=== PATIENT | male | born 1970 | race Caucasian/White ===

== ENCOUNTER 2021-07-31 12:07 | Emergency (ER) | payer OTHER ==
[2021-07-31 12:31] LABS: Absolute Lymphocytes (CBC) 1.8 K/uL (0.7-4.9); Basophils % 0.8 % (0-1.3); Hematocrit 44.5 % (39.6-49.0); Lymphocytes % 35.6 % (15.3-44.8); MPV 7.6 fL (7.6-11.3); RBC Red Blood Cell Count 5.24 M/uL (4.33-5.43)
[2021-07-31 12:36] LABS: Protime INR 1.04
[2021-07-31] MEDS ORDERED: ASPIRIN 81 MG CHEWABLE TABLET ONE (12:44)
[2021-07-31] MEDS ORDERED: NA CHLORIDE 0.9% 1,000 ML ONE (12:44)
[2021-07-31 12:55] LABS: ALT/SGPT 49 U/L (12-78); AST/SGOT 17 U/L (15-37); Albumin 4.2 g/dL (3.4-5.0); Alkaline Phosphatase 60 U/L (45-117); BUN Blood Urea Nitrogen 20 mg/dL (7-18); Bicarbonate 30 mmol/L (21-32); Bilirubin Direct < 0.1 mg/dL (0-0.2); Bilirubin Total 0.3 mg/dL (0.2-1.0); Glucose Level 126 mg/dL (74-106); Lipase 143 U/L (73-393); Magnesium 2.3 mg/dL (1.8-2.4); NT PRO-BNP 11 pg/mL (<125); Potassium 4.1 mmol/L (3.5-5.1); Protein, Total 7.6 g/dL (6.4-8.2); Sodium Level 139 mmol/L (136-145); Troponin (Emerg Dept Use Only) < 0.02 ng/mL (0.0-0.045)
--- NOTE | 2021-07-31 13:09 | ER ---
Nurse's Notes [facility] Name: Elijah Olivo Age: 51 yrs Sex: Male : 1970 Arrival Date: 07/31/2021 Time: 12:09 Bed 26 Private MD: Diagnosis: Chest pain, unspecified;Essential (primary) hypertension Presentation: 07/31 12:32 Chief complaint: Patient states: "I was at work this morning when I began to feel a ld1 dull pain in the top left of my chest. It progressed to both of my arms feeling ice cold." Patient reports chest pains throughout the past week. Coronavirus screen: At this time, the client does not indicate any symptoms associated with coronavirus-19. Ebola Screen: No symptoms or risks identified at this time. Initial Sepsis Screen: Does the patient meet any 2 criteria? No. Patient's initial sepsis screen is negative. Does the patient have a suspected source of infection? No. Patient's initial sepsis screen is negative. Risk Assessment: Do you want to hurt yourself or someone else? Patient reports no desire to harm self or others. Onset of symptoms was July 31, 2021. 12:32 Method Of Arrival: EMS: BASF ld1 12:32 Acuity: JOEL 3 ld1 Triage Assessment: 12:35 General: Appears in no apparent distress. comfortable, Behavior is calm, cooperative, ld1 appropriate for age. Pain: Denies pain. EENT: No signs and/or symptoms were reported regarding the EENT system. Neuro: Level of Consciousness is awake, alert, obeys commands, Oriented to person, place, time, situation. Cardiovascular: Capillary refill < 3 seconds Patient's skin is warm and dry. Rhythm is regular. Respiratory: Airway is patent Respiratory effort is even, unlabored, Respiratory pattern is regular, symmetrical. GI: Abdomen is flat, non-distended. : No signs and/or symptoms were reported regarding the genitourinary system. Derm: No signs and/or symptoms reported regarding the dermatologic system. Musculoskeletal: Reports pain in anterior aspect of left upper chest Pt denies pain at this time. States he has been having chest pain throughout the past week and this morning, but not at this current moment. Historical: - Allergies: 12:35 No Known Allergies; ld1 - Home Meds: 12:35 None [Active]; ld1 - PMHx: 12:35 None; ld1 - PSHx: 12:35 None; ld1 - Immunization history:: Adult Immunizations up to date, Client reports receiving the 2nd dose of the Covid vaccine. - Social history:: Smoking status: Patient denies any tobacco usage or history of. - Family history:: not pertinent. Screenin:37 Abuse screen: Denies threats or abuse. Denies injuries from another. Nutritional ld1 screening: No deficits noted. Tuberculosis screening: No symptoms or risk factors identified. Fall Risk None identified. Assessment: 12:37 Reassessment: See triage assessment. ld1 13:30 Reassessment: Patient appears in no apparent distress at this time. No changes from ld1 previously documented assessment. Patient and/or family updated on plan of care and expected duration. Pain level reassessed. Patient is alert, oriented x 3, equal unlabored respirations, skin warm/dry/pink. 14:40 Reassessment: Patient appears in no apparent distress at this time. Patient is alert, ld1 oriented x 3, equal unlabored respirations, skin warm/dry/pink. 14:40 Reassessment: Patient appears in no apparent distress at this time. Patient and/or ld1 family updated on plan of care and expected duration. Pain level reassessed. Patient is alert, oriented x 3, equal unlabored respirations, skin warm/dry/pink. Pt requesting further testing. Notified ERP. See orders. Vital Signs: 12:32 BP 152 / 93; Pulse 68; Resp 18; Temp 98.7(O); Pulse Ox 100% on R/A; Weight 86.18 kg; ld1 Height 5 ft. 9 in. (175.26 cm); Pain 0/10; 12:50 BP 146 / 85; Pulse 72; Resp 18; Pulse Ox 100% on R/A; ld1 14:40 BP 141 / 95; Pulse 67; Resp 18; Pulse Ox 99% ; ld1 12:32 Body Mass Index 28.06 (86.18 kg, 175.26 cm) ld1 ED Course: 12:09 Patient arrived in ED. segun 12:11 Asher Pierce MD is Attending Physician. [facility] 12:32 Simi Lima RN is Primary Nurse. ld1 12:35 Triage completed. ld1 12:35 Arm band placed on right wrist. ld1 12:37 Patient has correct armband on for positive identification. Placed in gown. Bed in low ld1 position. Call light in reach. Side rails up X2. laboratory monitor on. Pulse ox on. NIBP on. Door closed. Noise minimized. Warm blanket given. 12:37 No provider procedures requiring assistance completed. Maintain EMS IV. Dressing ld1 intact. Good blood return noted. Site clean \\T\\ dry. Gauge \\T\\ site: 20 G LAC. Patient maintains SpO2 saturation greater than 95% on room air. 13:08 Garrett Michele MD is Referral Physician. [facility] 13:13 Garrett Michele MD is Referral Physician. [facility] 13:15 XRAY Chest (1 view) In Process Unspecified. EDMS 14:36 Troponin (Emerg Dept Use Only) Sent. ld1 15:28 Michael Gamino MD is Referral Physician. [facility] 16:02 CT Aorta for Dissection In Process Unspecified. EDMS 16:54 IV discontinued, intact, bleeding controlled, No redness/swelling at site. ld1 Administered Medications: 12:27 Drug: NS 0.9% 1000 ml Route: IV; Rate: 1 bolus; Site: left antecubital; ld1 12:27 Drug: Aspirin Chewable Tablet 324 mg Route: PO; ld1 15:34 Follow up: Response: No adverse reaction ld1 13:38 Drug: ToPROL XL (metoprolol SUCCINATE) 25 mg Route: PO; ld1 14:36 Follow up: Response: No adverse reaction ld1 15:34 Drug: Pepcid (famotidine) 20 mg Route: IVP; Site: left antecubital; ld1 15:34 Drug: GI Cocktail without - (Maalox Suspension 30 ml, Lidocaine Liquid 2 % 15 ld1 ml) Route: PO; Outcome: 13:08 Discharge ordered by . segun 13:13 Discharge ordered by . [facility] 16:53 Discharged to home ambulatory. ld1 16:53 Condition: stable 16:53 Discharge instructions given to patient, Instructed on discharge instructions, follow up and referral plans. medication usage, Demonstrated understanding of instructions, follow-up care, medications, Prescriptions given X 2. 16:54 Patient left the ED. ld1 Signatures: Dispatcher [employer] EDAsher Desir MD MD cha Dibbern, Simi, RN RN ld1 Corrections: (The following items were deleted from the chart) 12:36 12:35 Home Meds: Unable to obtain; ld1 ld1
--- NOTE | 2021-07-31 13:09 | EDPHYS ---
Physician Documentation [facility] Name: Elijah Olivo Age: 51 yrs Sex: Male : 1970 Arrival Date: 07/31/2021 Time: 12:09 Bed 26 Private MD: Asher Subramanian HPI: 07/31 12:12 This 51 yrs old Male presents to ER via Unassigned with complaints of CHEST segun PAIN, PALPITATIONS. 12:12 The patient or guardian reports chest pain that is located primarily in the substernal segun area. Onset: 1 week(s) ago. The patient presents with a history of irregular heart beat, heart skipping beats. Context: The symptoms occur with light activity. Onset: The symptoms/episode began/occurred 1 week(s) ago. Duration: The patient or guardian reports multiple episodes, with no pattern. Modifying factors: The symptoms are aggravated by nothing. The symptoms are alleviated by nothing. The pain does not radiate. Associated signs and symptoms: Pertinent positives: chest pain, lightheadedness. The chest pain is described as sharp. Historical: - Allergies: 12:35 No Known Allergies; ld1 - Home Meds: 12:35 None [Active]; ld1 - PMHx: 12:35 None; ld1 - PSHx: 12:35 None; ld1 - Immunization history:: Adult Immunizations up to date, Client reports receiving the 2nd dose of the Covid vaccine. - Social history:: Smoking status: Patient denies any tobacco usage or history of. - Family history:: not pertinent. ROS: 12:12 Constitutional: Negative for fever, chills, and weight loss, Eyes: Negative for injury, segun pain, redness, and discharge, ENT: Negative for injury, pain, and discharge, Neck: Negative for injury, pain, and swelling, Respiratory: Negative for shortness of breath, cough, wheezing, and pleuritic chest pain, Abdomen/GI: Negative for abdominal pain, nausea, vomiting, diarrhea, and constipation, Back: Negative for injury and pain, : Negative for injury, bleeding, discharge, and swelling, MS/Extremity: Negative for injury and deformity, Skin: Negative for injury, rash, and discoloration, Neuro: Negative for headache, weakness, numbness, tingling, and seizure, Psych: Negative for depression, anxiety, suicide ideation, homicidal ideation, and hallucinations, Allergy/Immunology: Negative for hives, rash, and allergies, Endocrine: Negative for neck swelling, polydipsia, polyuria, polyphagia, and marked weight changes, Hematologic/Lymphatic: Negative for swollen nodes, abnormal bleeding, and unusual bruising. 12:12 Cardiovascular: Positive for chest pain, with cough. Exam: 12:12 Constitutional: This is a well developed, well nourished patient who is awake, alert, segun and in no acute distress. Head/Face: Normocephalic, atraumatic. Eyes: Pupils equal round and reactive to light, extra-ocular motions intact. Lids and lashes normal. Conjunctiva and sclera are non-icteric and not injected. Cornea within normal limits. Periorbital areas with no swelling, redness, or edema. ENT: Nares patent. No nasal discharge, no septal abnormalities noted. Tympanic membranes are normal and external auditory canals are clear. Oropharynx with no redness, swelling, or masses, exudates, or evidence of obstruction, uvula midline. Mucous membranes moist. Neck: Trachea midline, no thyromegaly or masses palpated, and no cervical lymphadenopathy. Supple, full range of motion without nuchal rigidity, or vertebral point tenderness. No Meningismus. Chest/axilla: Normal chest wall appearance and motion. Nontender with no deformity. No lesions are appreciated. Cardiovascular: Regular rate and rhythm with a normal S1 and S2. No gallops, murmurs, or rubs. Normal PMI, no JVD. No pulse deficits. Respiratory: Lungs have equal breath sounds bilaterally, clear to auscultation and percussion. No rales, rhonchi or wheezes noted. No increased work of breathing, no retractions or nasal flaring. Abdomen/GI: Soft, non-tender, with normal bowel sounds. No distension or tympany. No guarding or rebound. No evidence of tenderness throughout. Back: No spinal tenderness. No costovertebral tenderness. Full range of motion. Male : Normal genitalia with no discharge or lesions. Skin: Warm, dry with normal turgor. Normal color with no rashes, no lesions, and no evidence of cellulitis. MS/ Extremity: Pulses equal, no cyanosis. Neurovascular intact. Full, normal range of motion. Neuro: Awake and alert, GCS 15, oriented to person, place, time, and situation. Cranial nerves II-XII grossly intact. Motor strength 5/5 in all extremities. Sensory grossly intact. Cerebellar exam normal. Normal gait. Psych: Awake, alert, with orientation to person, place and time. Behavior, mood, and affect are within normal limits. 12:12 Musculoskeletal/extremity: Circulation is intact in all extremities. Sensation intact. Compartment Syndrome exam of affected extremity: is normal. Joints: All joints appear normal with full range of motion. DVT Exam: No signs of deep vein thrombosis. no pain, no swelling, no tenderness, negative Homans' sign noted on exam, no appreciated bluish discoloration, no erythema, no increased warmth. 12:38 ECG was reviewed by the Attending Physician. [facility] 16:25 ECG was reviewed by the Attending Physician. [facility] Vital Signs: 12:32 BP 152 / 93; Pulse 68; Resp 18; Temp 98.7(O); Pulse Ox 100% on R/A; Weight 86.18 kg; ld1 Height 5 ft. 9 in. (175.26 cm); Pain 0/10; 12:50 BP 146 / 85; Pulse 72; Resp 18; Pulse Ox 100% on R/A; ld1 14:40 BP 141 / 95; Pulse 67; Resp 18; Pulse Ox 99% ; ld1 12:32 Body Mass Index 28.06 (86.18 kg, 175.26 cm) ld1 MDM: 12:11 Patient medically screened. segun 12:14 Differential diagnosis: abnormal EKG, coronary artery disease chest wall pain, segun congestive heart failure costochondritis, arrythmia, hiatal hernia, pancreatitis, pulmonary embolus, stable angina, unstable angina. HEART Score: History: Slightly Suspicious (0), ECG: Normal (0), Age: > 45 and < 65 years (1), Risk Factors: No Risk Factors Known (0), Troponin: < or = 1 x Normal Limit (0). The patient was given aspirin in the Emergency Department. The patient's deep vein thrombosis risk score was calculated as follows: Total Score: 0. This patient was found to be at low risk for a deep vein thrombosis by using the Well's assessment criteria. The patient's pulmonary embolism risk score was calculated as follows: Total Score: 0-2 points. This patient was found to be at low risk for a pulmonary embolism by using the Well's assessment criteria. FLOYD Risk Score: TOTAL SCORE = 0. Data reviewed: vital signs, nurses notes, lab test result(s), EKG, radiologic studies, plain films. Data interpreted: monitoring engineer: rate is 65 beats/min, rhythm is regular, Pulse oximetry: on room air is 96 %. 07/31 12:12 Order name: Basic Metabolic Panel; Complete Time: 13:06 [facility] 07/31 12:12 Order name: CBC with Diff; Complete Time: 13:06 segun 07/31 12:12 Order name: LFT's; Complete Time: 13:06 [facility] 07/31 12:12 Order name: Magnesium; Complete Time: 13:06 [facility] 07/31 12:12 Order name: NT PRO-BNP; Complete Time: 13:06 segun 07/31 12:12 Order name: PT-INR; Complete Time: 13:06 segun 07/31 12:12 Order name: Troponin (emerg Dept Use Only); Complete Time: 13:06 [facility] 07/31 12:12 Order name: XRAY Chest (1 view); Complete Time: 15:14 [facility] 07/31 12:12 Order name: Lipase; Complete Time: 13:06 [facility] 07/31 13:13 Order name: Troponin (Emerg Dept Use Only); Complete Time: 15:14 EDMS 07/31 13:49 Order name: Echo w/ Doppler 07/31 15:24 Order name: CT Aorta for Dissection [facility] 07/31 15:24 Order name: Troponin (emerg Dept Use Only): 400PM [facility] 07/31 12:12 Order name: EKG; Complete Time: 12:12 [facility] 07/31 12:12 Order name: Cardiac monitoring; Complete Time: 12:16 [facility] 07/31 12:12 Order name: EKG - Nurse/Tech; Complete Time: 12:16 [facility] 07/31 12:12 Order name: IV Saline Lock; Complete Time: 12:16 [facility] 07/31 12:12 Order name: Labs collected and sent; Complete Time: 12:16 segun 07/31 12:12 Order name: O2 Per Protocol; Complete Time: 12:16 segun 07/31 12:12 Order name: O2 Sat Monitoring; Complete Time: 12:16 [facility] EC:38 Rate is 63 beats/min. Rhythm is regular. QRS [place] is Normal. NC interval is normal. QRS segun interval is normal. QT interval is normal. No Q waves. T waves are Normal. No ST changes noted. Clinical impression: Normal ECG and No evidence of ischemia. Interpreted by me. Reviewed by me. 16:25 Rate is 61 beats/min. Rhythm is regular. QRS [place] is Normal. NC interval is normal. QRS segun interval is normal. QT interval is normal. No Q waves. T waves are Normal. No ST changes noted. Clinical impression: Normal ECG and No evidence of ischemia. Interpreted by me. Reviewed by me. Administered Medications: 12:27 Drug: NS 0.9% 1000 ml Route: IV; Rate: 1 bolus; Site: left antecubital; ld1 12:27 Drug: Aspirin Chewable Tablet 324 mg Route: PO; ld1 15:34 Follow up: Response: No adverse reaction ld1 13:38 Drug: ToPROL XL (metoprolol SUCCINATE) 25 mg Route: PO; ld1 14:36 Follow up: Response: No adverse reaction ld1 15:34 Drug: Pepcid (famotidine) 20 mg Route: IVP; Site: left antecubital; ld1 15:34 Drug: GI Cocktail without - (Maalox Suspension 30 ml, Lidocaine Liquid 2 % 15 ld1 ml) Route: PO; Disposition Summary: 07/31/21 13:13 Discharge Ordered Location: Home(07/31/21 13:13) segun Problem: new(07/31/21 13:13) segun Symptoms: have improved(07/31/21 13:13) segun Condition: Stable(07/31/21 13:13) segun Diagnosis - Chest pain, unspecified(07/31/21 13:13) segun - Essential (primary) hypertension segun Followup: segun - With: Private Physician - When: 2 - 3 days - Reason: Recheck today's complaints, Continuance of care, Re-evaluation by your physician Followup: segun - With: Garrett Michele MD - When: 2 - 3 days - Reason: Recheck today's complaints, Re-evaluation by your physician Followup: segun - With: Mihcael Gamino MD - When: 2 - 3 days - Reason: Recheck today's complaints, Re-evaluation by your physician Discharge Instructions: - Discharge Summary Sheet segun - Nonspecific Chest Pain, Adult segun - Hypertension, Adult segun - Nonspecific Chest Pain, Adult, [id number] segun - Hypertension, Adult, [id number] segun - Aspirin and Your Heart segun Forms: - Medication Reconciliation Form segun - Thank You Letter segun - Antibiotic Education segun - Prescription Opioid Use [facility] Prescriptions: - Toprol XL 25 mg Oral Tablet - take 1 tablet by ORAL route once daily; 20 tablet; Refills: 0, Product segun Selection Permitted - Pepcid 20 mg Oral Tablet - take 1 tablet by ORAL route every 12 hours for 15 days; 30 tablet; Refills: 0, segun Product Selection Permitted Signatures: Dispatcher [employer] EDMS Asher Pierce MD MD cha Dibbern, Lauren, RN RN ld1 Corrections: (The following items were deleted from the chart) 12:36 12:35 Home Meds: Unable to obtain; ld1 ld1 13:11 13:08 Home [facility] 13:11 13:08 new [facility] 13:11 13:08 have improved [facility] 13:11 13:08 Stable [facility] 13:11 13:08 Chest pain, unspecified [facility] 13:31 13:13 TROPONIN (EMERG DEPT USE ONLY)+[email or web address] ordered. EDMS EDMS
--- NOTE | 2021-07-31 13:49 | RAD REPORT ---
EXAM DESCRIPTION: RAD - Chest Single View - 07/31/2021 1:15 pm CLINICAL HISTORY: CHEST PAIN Chest pain. COMPARISON: No comparisons FINDINGS: Portable technique limits examination quality. The lungs are grossly clear. The heart is normal in size. No displaced fractures. IMPRESSION: No acute intrathoracic process suspected.
[2021-07-31] MEDS ORDERED: METOPROLOL TAR 25 MG TAB ONE (13:58)
[2021-07-31] MEDS ORDERED: MAGNES/ALUMIN/SIMET 30ML UCUP ONE (15:51)
[2021-07-31] MEDS ORDERED: FAMOTIDINE 20 MG/2 ML VIAL IV ONE (15:51)
[2021-07-31] MEDS ORDERED: LIDOCAINE VISCOUS 2% SOLN 15 ML UDC ONE (15:51)
--- NOTE | 2021-07-31 16:59 | RAD REPORT ---
EXAM DESCRIPTION: CT - Angio Aorta For Dissection - 07/31/2021 4:02 pm CLINICAL HISTORY: Chest pain radiating to the back. Dissection;PE COMPARISON: No comparisons TECHNIQUE: CT angiography of the aorta was performed with MIPs. All CT scans are performed using dose optimization technique as appropriate and may include automated exposure control or mA/KV adjustment according to patient size. FINDINGS: A left aortic arch is present with normal branching pattern of the great vessels.No acute aortic finding is seen such as aneurysm, penetrating ulcer or dissection. The celiac axis, SMA, TANMAY and renal arteries are patent. No evidence of pulmonary embolism. The lungs are clear. The liver demonstrates no focal mass or biliary dilatation.Small fat containing umbilical hernia.The spleen, pancreas, adrenal glands and kidneys are within normal limits for arterial phase imaging. No bowel obstruction, free fluid or abscess.Normal appendix.No pathologic enlarged lymphadenopathy id entified. Lower lumbar degenerative changes are present. IMPRESSION: No acute aortic finding is demonstrated.
[2021-07-31 17:14] VITALS: TEMP 98.7
[2021-07-31 17:16] VITALS: BP 141/95; O2SAT 99
--- NOTE | 2021-08-01 07:18 | ECHO ---
HEIGHT: 5 ft 9 in WEIGHT: 190 lb 0 oz DATE OF STUDY: 07/31/[address]: Asher Pierce MD 2-DIMENSIONAL: YES M.MODE: YES DOPPLER: YES COLOR FLOW: YES TDS: NO PORTABLE: NO DEFINITY: NO BUBBLE STUDY: NO DIAGNOSIS: CHEST PAIN CARDIAC HISTORY: CATHERIZATION: NO SURGERY: NO PROSTHETIC VALVE: NO PACEMAKER: NO MEASUREMENTS (cm) DIASTOLIC (NORMALS) SYSTOLIC (NORMALS) IVSd 1.0 (0.6-1.2) LA Diam 1.9 (1.9-4.0) LVEF 60-65% LVIDd 4.2 (3.5-5.7) LVIDs 2.6 (2.0-3.5) %FS 39% LVPWd 1.0 (0.6-1.2) Ao Diam 2.9 (2.0-3.7) 2 DIMENSIONAL ASSESSMENT: RIGHT ATRIUM: NORMAL LEFT ATRIUM: NORMAL RIGHT VENTRICLE: NORMAL LEFT VENTRICLE: NORMAL TRICUSPID VALVE: NORMAL MITRAL VALVE: NORMAL PULMONIC VALVE: NORMAL AORTIC VALVE: NORMAL PERICARDIAL EFFUSION: NONE AORTIC ROOT: NORMAL LEFT VENTRICULAR WALL MOTION: NORMAL DOPPLER/COLOR FLOW: NORMAL COMMENTS: LEFT VENTRICULAR EJECTION FRACTION 60-65%. NORMAL WALL MOTION. NORMAL STUDY. TECHNOLOGIST: Jonathon HERMOSILLO
--- NOTE | 2021-08-02 11:47 | EKG ---
Test Date: 2021-07-31 Test Time: 16:22:24 Grain Cleaner And Transfer Operator: REHANA MEASUREMENT RESULTS: Intervals: Rate: 61 MT: 204 QRSD: 90 QT: 400 QTc: 402 [place]: P: 29 MT: 204 QRS: 49 T: 73 INTERPRETIVE STATEMENTS: Normal sinus rhythm Normal ECG Compared to ECG 07/31/2021 12:15:13 No significant changes Electronically Signed On 08-02-21 11:44:48 CDT by Garrett Michele
--- NOTE | 2021-08-02 11:48 | EKG ---
Test Date: 2021-07-31 Test Time: 12:15:13 Associate Counsel: POLO MEASUREMENT RESULTS: Intervals: Rate: 63 ID: [id number] QRSD: 98 QT: 404 QTc: 413 [place]: P: 43 ID: [id number] QRS: 48 T: 74 INTERPRETIVE STATEMENTS: Normal sinus rhythm Normal ECG No previous ECG available for comparison Electronically Signed On 08-02-21 11:45:08 CDT by Garrett Michele
== END 2021-07-31 16:54 | disposition home or self-care (01) ==
LOC: ER 12:07
DX: I10 Essential (primary) hypertension (principal)
CPT/HCPCS: 93005 ×2; 93306; 85025; 80048; 36415; 83735; 85610; 80076; 84484 ×3; 83690; 83880; 71275; 74175; 71045; 96374; 99285; Q9967; J7030